=== PATIENT | female | born 1985 | race American Indian/Alaskan Native ===

== ENCOUNTER 2022-04-08 22:10 | Emergency (ER) | payer BC, OTHER ==
[2022-04-09] MEDS ORDERED: predniSONE 50 MG TAB PO ONE (04:18)
[2022-04-09] MEDS ORDERED: IBUPROFEN 600 MG TAB PO ONE (04:18)
--- NOTE | 2022-04-09 04:22 | Emergency Department Report ---
ED Extremity Problem HPI - General Chief complaint: Extremity Problem,Nontraumatic Stated complaint: SWOLLEN FEET Source: patient Mode of arrival: Ambulatory Limitations: No Limitations - History of Present Illness Initial comments: Patient is a 37-year-old -British female with a history of HIV who presents to the ED with complaint of persistent bilateral ankle and foot swelling for over 1 month. Patient states that she has previously been treated for the same at [facility] ER and advised to elevate her feet to improve and the swelling. Patient denies dizziness, syncope, chest pain, shortness of breath, traumatic injury, headache, fever, chills, back pain, numbness and tingling or weakness of lower extremities bilaterally, fall or heavy lifting. MD Complaint: extremity pain (Bilateral foot on the ankle swelling), extremity swelling, joint swelling, joint paint -: Gradual, month(s) (1) Location: bilateral lower extremity (foot and ankles) History of Same: Yes (chronic) -: Yes arthralgia, No associated dyspnea, No associated chest pain Radiation: distal Severity scale (0 -10): 5 Quality: aching, dull Consistency: constant Improves with: nothing Worsens with: weight bearing, walking, exertion Associated Symptoms: denies other symptoms, arthralgias (bilateral ankle and foot pain). denies: chest pain, shortness of breath, fever, myalgias - Related Data Previous Rx's Medication Instructions Recorded Last Taken Type Ibuprofen [Motrin] 600 mg PO Q8H PRN #30 tablet 04/09/22 Unknown Rx predniSONE [Deltasone] 40 mg PO QDAY #10 tab 04/09/22 Unknown Rx Allergies Allergy/AdvReac Type Severity Reaction Status Date / Time No Known Allergies Allergy Verified 04/09/22 02:14 ED Review of Systems ROS: Stated complaint: SWOLLEN FEET Other details as noted in HPI Constitutional: denies: chills, fever Eyes: denies: eye pain, eye discharge, vision change ENT: denies: ear pain, throat pain Respiratory: denies: cough, shortness of breath, wheezing Cardiovascular: denies: chest pain, palpitations Endocrine: no symptoms reported Gastrointestinal: denies: abdominal pain, nausea, vomiting, diarrhea Genitourinary: denies: urgency, dysuria, discharge Musculoskeletal: joint swelling (bilateral foot and ankle), arthralgia (bilateral foot and ankle), myalgia. denies: back pain Skin: denies: rash, lesions Neurological: denies: headache, weakness, paresthesias Psychiatric: denies: anxiety, depression Hematological/Lymphatic: denies: easy bleeding, easy bruising ED Past Medical Hx - Past Medical History Hx HIV: Yes - Medications Home Medications: Home Medications Medication Instructions Recorded Confirmed Last Taken Type Ibuprofen [Motrin] 600 mg PO Q8H PRN #30 tablet 04/09/22 Unknown Rx predniSONE [Deltasone] 40 mg PO QDAY #10 tab 04/09/22 Unknown Rx ED Physical Exam - General Limitations: No Limitations General appearance: alert, in no apparent distress - Head Head exam: Present: atraumatic, normocephalic, normal inspection - Eye Eye exam: Present: normal appearance, PERRL, EOMI Pupils: Present: normal accommodation - ENT ENT exam: Present: normal exam, normal orophraynx, mucous membranes moist, TM's normal bilaterally, normal external ear exam - Neck Neck exam: Present: normal inspection, full ROM. Absent: tenderness, lymphadenopathy - Respiratory Respiratory exam: Present: normal lung sounds bilaterally. Absent: respiratory distress, wheezes, rales, rhonchi, chest wall tenderness, accessory muscle use - Cardiovascular Cardiovascular Exam: Present: regular rate, normal rhythm, normal heart sounds. Absent: systolic murmur, diastolic murmur, rubs, gallop - GI/Abdominal GI/Abdominal exam: Present: soft, normal bowel sounds. Absent: tenderness, guarding, rebound, hyperactive bowel sounds, hypoactive bowel sounds, organomegaly, mass - Extremities Exam Extremities exam: Present: normal inspection, full ROM, tenderness (Palpable bilateral foot and ankle tenderness with swelling), normal capillary refill, pedal edema (1+ bilateral pedal edema), joint swelling (Bilateral foot and ankle). Absent: calf tenderness - Back Exam Back exam: Present: normal inspection, full ROM. Absent: tenderness, CVA tenderness (R), CVA tenderness (L), muscle spasm, paraspinal tenderness, vertebral tenderness - Neurological Exam Neurological exam: Present: alert, oriented X3, CN II-XII intact, normal gait, reflexes normal - Psychiatric Psychiatric exam: Present: normal affect, normal mood, anxious - Skin Skin exam: Present: warm, dry, intact, normal color. Absent: rash ED Course Vital Signs 04/09/22 00:31 Temperature 97.6 F Pulse Rate 96 H Respiratory 16 Rate Blood Pressure 99/69 O2 Sat by Pulse 100 Oximetry ED Medical Decision Making - Medical Decision Making This is a 37-year-old -British female with a history of HIV who presents to the ED with complaint of persistent bilateral ankle and foot swelling for over 1 month. Patient states that she has previously been treated for the same at [facility] ER and advised to elevate her feet to improve and the swelling. In the ED, patient is alert and oriented x3 and is not in distress. Patient is hemodynamically stable. Patient was treated for pain in the ED and discharged home and advised to follow-up with her primary care physician in 7 to 10 days for reevaluation or return to the ED immediately if symptoms get worse. - Differential Diagnosis muscle strain; muscle spasm; tendonitis; Gout; osteoarthritis Critical care attestation.: If time is entered above; I have spent that time in minutes in the direct care of this critically ill patient, excluding procedure time. ED Disposition Clinical Impression: Bilateral swelling of feet and ankles, Chronic pain of both feet Disposition: 01 HOME / SELF CARE / HOMELESS Is pt being admited?: No Does the pt Need Aspirin: No Condition: Stable Instructions: Pain Medicine Instructions, [id number], Pain Without a Known Cause, Ankle Pain, Foot Pain Additional Instructions: Take medication with food, drink plenty of fluids and follow-up with your primary care physician in 7 to 10 days for reevaluation. Return to the ED immediately if symptoms get worse. Prescriptions: predniSONE [Deltasone] 40 mg PO QDAY #10 tab Ibuprofen [Motrin] 600 mg PO Q8H PRN #30 tablet PRN Reason: Pain Referrals: [facility] [Provider Group] - 7-10 days Time of Disposition: 04:24 Print Language: [email or web address]
[2022-04-09 05:17] VITALS: BP 117/78
== END 2022-04-09 06:50 | disposition home or self-care (01) ==
LOC: ED 22:10
DX: M79.89 Other specified soft tissue disorders (principal); M79.673 Pain in unspecified foot; G89.29 Other chronic pain
CPT/HCPCS: 99282; J7512